=== PATIENT | male | born 1980 | race Caucasian/White ===

== ENCOUNTER 2017-09-30 14:31 | Emergency (ER) | payer SELFPAY ==
[2017-09-30 15:36] LABS: ADD MAN DIFF? NO
[2017-09-30] MEDS: ASPIRIN 325 MG TABLET PO (15:40)
[2017-09-30 15:42] LABS: BASO # 0.1 x10^3/uL (0.0-0.2); BASO % 1 % (0-3); EOS # 0.2 x10^3/uL (0.0-0.7); EOS % 3 % (0-3); HEMATOCRIT 43.4 % (39.0-53.0); HEMOGLOBIN 14.7 g/dL (13.0-17.5); LYMPH % 24 % (24-48); MEAN CORPUSCULAR HEMOGLOBIN 33 pg (25-35); MEAN CORPUSCULAR HGB CONC 34 g/dL (31-37); MEAN CORPUSCULAR VOLUME 97 fL (79-100); MONO % 12 % (0-9); NEUT # 4.9 x10^3uL (1.8-7.7); NEUT % 60 % (31-73); PLATELET COUNT 243 x10^3/uL (140-400); RED BLOOD COUNT 4.48 x10^6/uL (4.30-5.70); RED CELL DISTRIBUTION WIDTH 14.3 % (11.5-14.5); WHITE BLOOD COUNT 8.1 x10^3/uL (4.0-11.0)
[2017-09-30 15:51] LABS: ANION GAP 3 (6-14); BLOOD UREA NITROGEN 10 mg/dL (8-26); CALCIUM 9.1 mg/dL (8.5-10.1); CARBON DIOXIDE 28 mmol/L (21-32); CHLORIDE 108 mmol/L (98-107); CREATININE 1.2 mg/dL (0.7-1.3); GFR 67.8; GLUCOSE 82 mg/dL (70-99); MAGNESIUM 2.4 mg/dL (1.8-2.4); SODIUM 139 mmol/L (136-145)
[2017-09-30 15:57] LABS: TROPONINI < 0.017 ng/mL (0.000-0.055)
[2017-09-30 15:58] LABS: D-DIMER 0.27 ug/mlFEU (0.00-0.50)
[2017-09-30 15:58] LABS: BARBITURATES NEG (NEG); BENZODIAZEPINES NEG (NEG); CANNABINOIDS POS (NEG); COCAINE NEG (NEG); METHADONE NEG (NEG); OPIATES NEG (NEG); PHENCYCLIDINE NEG (NEG)
[2017-09-30 16:01] LABS: AMPHETAMINE/METHAMPHETAMINE NEG (NEG); ETHANOL, URINE NEG (NEG)
[2017-09-30 16:03] LABS: THYROID STIM HORMONE (TSH) 0.934 uIU/mL (0.358-3.74)
[2017-09-30 16:11] LABS: NT-PRO BNP 41 pg/mL (0-124)
[2017-09-30 16:11] LABS: CKMB MASS < 0.5 ng/mL (0.0-3.6); CREATINE KINASE 75 U/L (39-308)
== END 2017-09-30 16:19 | disposition home or self-care (01) ==
LOC: ER 14:31
DX: R07.89 Other chest pain (principal); F17.200 Nicotine dependence, unspecified, uncomplicated; F12.10 Cannabis abuse, uncomplicated
CPT/HCPCS: 36415; 71045; 80048; 80307; 82553; 83735; 83880; 84443; 84484; 85025; 85379; 93005; 99285-25

== ENCOUNTER 2018-01-05 21:18 | Emergency (ER) | payer SELFPAY ==
[2018-01-05] MEDS: LIDOCAINE WITH 8.4% SOD BICARB 3 ML DISP.SYRIN. INJ (21:30)
[2018-01-05] MEDS: DIPHTH,PERTUSS(ACELL),TET TOX 0.5 ML DISP.SYRIN. VAX IM (21:30)
== END 2018-01-05 23:09 | disposition home or self-care (01) ==
LOC: ER 21:18
DX: S61.412A Laceration without foreign body of left hand, initial encounter (principal); W25.XXXA Contact with sharp glass, initial encounter; Y93.89 Activity, other specified; Y92.89 Other specified places as the place of occurrence of the external cause; Y99.8 Other external cause status
CPT/HCPCS: 12001; 90471; 90715; 99283

== ENCOUNTER 2019-08-07 10:05 | Emergency (ER) | payer SELFPAY ==
[~2019-08-07] VITALS: Ht 180.3 cm; Wt 63.3 kg
[~2019-08-07 10:05] MED LIST: AZIT250T PO
[2019-08-07 10:23] VITALS: BP 144/92
[2019-08-07] MEDS ORDERED: KETO5DRO4 EACHEYE (10:46)
--- NOTE | 2019-08-07 10:47 | PHYS DOC ---
Past Medical History Past Medical History: No Pertinent History (CONY CRAFT APRN) Past Surgical History: No Surgical History (CONY CRAFT APRN) Smoking Status: Current Every Day Smoker Alcohol Use: Occasionally Drug Use: Marijuana (CONY CRAFT APRN) Adult General Chief Complaint Chief Complaint: EYE PROBLEMS HPI HPI Patient is a 38 year old male patient who presents to the ED today complaining of right eye redness and itching that began 2 days ago. Patient is also complaining of clear drainage. Denies any vision loss. (CONY CRAFT APRN) Review of Systems Review of Systems Constitutional: Denies fever or chills [] Eyes: Reports right eye redness itching and clear drainage. Denies change in visual acuity, eye pain [] Musculoskeletal: Denies back pain or joint pain [] Integument: Denies rash or skin lesions [] Neurologic: Denies headache, focal weakness or sensory changes [] All other systems were reviewed and found to be within normal limits, except as documented in this note. (CONY CRAFT APRN) Allergies Allergies Allergies Coded Allergies Type Severity Reaction Last Updated Verified No Known Drug Allergies 01/08/14 No (SARAH NEGRON DO) Physical Exam Physical Exam Constitutional: Well developed, well nourished, no acute distress, non-toxic appearance. [] HENT: Normocephalic, atraumatic, bilateral external ears normal, oropharynx moist, no oral exudates, nose normal. [] Eyes: PERRLA, EOMI, right conjunctiva is slightly injected, clear drainage noted. Skin: Warm, dry, no erythema, no rash. [] Back: No tenderness, no CVA tenderness. [] Extremities: No tenderness, no cyanosis, no clubbing, ROM intact, no edema. [] Neurologic: Alert and oriented X 3, normal motor function, normal sensory function, no focal deficits noted. [] Psychologic: Affect normal, judgement normal, mood normal. [] (CONY CRAFT APRN) Current Patient Data Vital Signs Vital Signs Date Time Temp Pulse Resp B/P (MAP) Pulse Ox O2 Delivery O2 Flow Rate FiO2 08/07/19 10:23 97.7 64 16 144/92 (109) 98 Room Air 97.7 (SARAH NEGRON DO) EKG EKG [] (CONY CRAFT APRN) Radiology/Procedures Radiology/Procedures [] (CONY CRAFT APRN) Course & Med Decision Making Course & Med Decision Making Pertinent Labs and Imaging studies reviewed. (See chart for details) This is a 38-year-old male patient with physical exam suspicious of viral conjunctivitis or seasonal allergies. Will be discharged with Zaditor. Provided maintenance repairer for follow-up (CONY CRAFT APRN) Dragon Disclaimer Dragon Disclaimer This electronic medical record was generated, in whole or in part, using a voice recognition dictation system. (CONY CRAFT APRN) Departure Departure Impression: Primary Impression: Allergic conjunctivitis, acute Disposition: HOME, SELF-CARE Condition: STABLE Referrals: NO PCP (PCP) BYRON JACKMAN MD follow up in 1-2 weeks Patient Instructions: Allergic Conjunctivitis, [id number] Additional Instructions: Please use the eye drops as prescribed. Please maintain good hand hygiene Follow up with your doctor or the eye doctor provided in 1 week Scripts Ketotifen Fumarate (ZADITOR) 5 Ml Drops 1 DROP EACHEYE BID, #5 ML Prov: CONY CRAFT APRN 08/07/19 Attending Signature Attending Signature I have reviewed the PA/KETTLE OPERATOR HEAD's note and plan of care. I was available for consultation as needed during the patient's visit in the emergency department. I agree with the clinical impression, plan, and disposition. (SARAH NEGRON DO) Problem Qualifiers Primary Impression: Allergic conjunctivitis, acute Laterality: right Qualified Codes: H10.11 - Acute atopic conjunctivitis, right eye CONY CRAFT APRN Aug 07, 2019 10:46 SARAH NEGRON DO Aug 08, 2019 21:33
== END 2019-08-07 10:55 | disposition home or self-care (01) ==
LOC: ER 10:05
DX: H10.11 Acute atopic conjunctivitis, right eye (principal); L53.9 Erythematous condition, unspecified; F12.90 Cannabis use, unspecified, uncomplicated; F17.200 Nicotine dependence, unspecified, uncomplicated
CPT/HCPCS: 99282